=== PATIENT | female | born 1955 | race Hispanic/Latino ===

== ENCOUNTER 2018-12-26 20:37 | Emergency (ER) | payer MEDICARE, OTHER ==
[2018-12-26 20:54] VITALS: BP 119/66; PULSE 75; RESP 16; TEMP 98.4; O2SAT 95
--- NOTE | 2018-12-26 21:14 | ED PDOC ---
HPI: General Adult Time Seen by Provider: 12/26/18 20:56 Chief Complaint (Nursing): Headache Chief Complaint (Provider): fall History Per: Patient History/Exam Limitations: no limitations Onset/Duration Of Symptoms: Hrs (1) Current Symptoms Are (Timing): Better Additional Complaint(s): 63 y/o female presents for evaluation of fall prior to arrival. Patient states she tripped on a curb and fell face forward, landed on left side of face. Patient complaining of pain to side of left eye and left forehead. Denies LOC, dizziness, nausea/vomiting, vision changes, extremity numbness/weakness, neck/back pain, extremity pain. Past Medical History Reviewed: Historical Data, Nursing Documentation, Vital Signs Vital Signs: Last Vital Signs Temp 98.4 F 12/26/18 20:51 Pulse 75 12/26/18 20:51 Resp 16 12/26/18 20:51 BP 119/66 12/26/18 20:51 Pulse Ox 95 12/26/18 20:51 - Medical History PMH: Diverticulitis, HTN - Surgical History Other surgeries: mastectomy - Family History Family History: States: Unknown Family Hx - Home Medications Home Medications: Ambulatory Orders Medication Instructions Recorded Ciprofloxacin HCl [Cipro] 500 mg PO BID #20 tab 11/21/14 Metronidazole [Flagyl] 500 mg PO TID #30 tab 11/21/14 traMADol [Ultram] 50 mg PO Q6 PRN #10 tab 11/21/14 Sulfamethoxazole/Trimethopri 1 tab PO BID #14 tab 11/27/14 [Bactrim Ds 800 mg-160 mg] - Allergies Allergies/Adverse Reactions: Allergies Allergy/AdvReac Type Severity Reaction Status Date / Time Penicillins Allergy RASH Verified 12/26/18 20:50 Review of Systems ROS Statement: Except As Marked, All Systems Reviewed And Found Negative Eyes: Positive for: Pain (left periorbital) Neurological: Positive for: Headache (left frontal) Physical Exam - Reviewed Nursing Documentation Reviewed: Yes Vital Signs Reviewed: Yes - Physical Exam Appears: Positive for: Well, Non-toxic, No Acute Distress Head Exam: Positive for: ATRAUMATIC, NORMAL INSPECTION, NORMOCEPHALIC Skin: Positive for: Normal Color Eye Exam: Positive for: EOMI, PERRL, Periorbital swelling (edema, ecchymosis, tenderness superior and lateral left periorbial). Negative for: Conjunctival injection ENT: Positive for: Normal ENT Inspection Cardiovascular/Chest: Positive for: Regular Rate, Rhythm Respiratory: Positive for: Normal Breath Sounds Gastrointestinal/Abdominal: Positive for: Normal Exam Back: Positive for: Normal Inspection Extremity: Positive for: Normal ROM Neurological/Psych: Positive for: Awake, Alert, Oriented (x3) - ECG O2 Sat by Pulse Oximetry: 95 - Progress ED Course And Treament: -CT head -CT facial bones -ice application -PO tylenol EXAM: CT Maxillofacial without Intravenous Contrast. CLINICAL HISTORY: Fall, facial injury TECHNIQUE: Axial computed tomography images of the face without intravenous contrast. Sagittal and coronal reformatted images were generated. 788.29 mGy-cm CONTRAST: Without COMPARISON: None provided. FINDINGS: BONES: No acute facial fractures are identified. SOFT TISSUES: The soft tissues are unremarkable. SINUSES: There is mild mucosal thickening in both maxillary sinuses. ORBITS: The bony orbits and globes appear intact. MISCELLANEOUS: Small amount of gas is seen under the right eyelid, please correlate clinically. IMPRESSION: 1. Small amount of gas is seen under the right eyelid, please correlate clinically. 2. There is mild mucosal thickening in both maxillary sinuses. 3. No acute facial fractures are identified. 4. The bony orbits and globes appear intact EXAM: CT Head without Intravenous Contrast. CLINICAL HISTORY: Fall, head injury TECHNIQUE: Axial computed tomography images of the head/brain without intravenous contrast. 770.10 mGy-cm COMPARISON: Comparison is made to prior CT brain examination dated 04/08/2014. FINDINGS: BRAIN No acute intraparenchymal hemorrhage. No mass lesion. No CT evidence for acute territorial infarct. No midline shift or extra-axial collections. Very minimal diffuse age-appropriate cerebral/cerebellar atrophy noted. There are bilateral periventricular and subcortical white matter hyperlucency is compatible with mild chronic microvascular disease. VENTRICLES: No hydrocephalus. ORBITS: The orbits are unremarkable. SINUSES AND MASTOIDS: The paranasal sinuses and mastoid air cells are clear. BONES: No fracture. SOFT TISSUES: Unremarkable. IMPRESSION: 1. No acute intracranial abnormality. 2. Minimal age appropriate cerebral/cerebellar atrophy. 3. Mild chronic microvascular disease. 4. No significant interval change Patient denies right periorbital pain/swelling. No crepitus noted upon palpation of bilateral eyelids Patient educated on findings, discharged with instructions to follow up with PMD within 2-3 days Advised ice application. Tylenol PRN pain Return precautions given Disposition - Clinical Impression Clinical Impression: Periorbital contusion of left eye - Patient ED Disposition Is Patient to be Admitted: No Counseled Patient/Family Regarding: Studies Performed, Diagnosis, Need For Followup - Disposition Disposition: Routine/Home Disposition Time: 22:58 Condition: IMPROVED Instructions: Eye Contusion (DC) Forms: [employer]) ([place])
--- NOTE | 2018-12-27 11:23 | CT ---
Date of service: 12/26/2018 PROCEDURE: CT HEAD WITHOUT CONTRAST. HISTORY: fall, head injury COMPARISON: 04/08/2014. TECHNIQUE: Axial computed tomography images were obtained through the head/brain without intravenous contrast. Supplemental Coronal and Sagittal projections created and reviewed. Radiation dose: Total exam DLP = 770.14 mGy-cm. This CT exam was performed using one or more of the following dose reduction techniques: Automated exposure control, adjustment of the mA and/or kV according to patient size, and/or use of iterative reconstruction technique. FINDINGS: HEMORRHAGE: No intracranial hemorrhage. BRAIN: No mass effect or edema. No atrophy or chronic microvascular ischemic changes. VENTRICLES: Unremarkable. No hydrocephalus. CALVARIUM: Unremarkable. PARANASAL SINUSES: Unremarkable as visualized. No significant inflammatory changes. MASTOID AIR CELLS: Unremarkable as visualized. No inflammatory changes. OTHER FINDINGS: None. IMPRESSION: No acute intracranial abnormalities. No significant findings to account for the clinical presentation. No significant interval change compared to the prior examination(s). Concordant results (preliminary interpretation) provided by [facility]. Procedure Completed: 21:25. Preliminary Report: Interpreted and electronically signed: 22:16. Final Interpretation: 11:19. December 27, 2018.
--- NOTE | 2018-12-27 11:28 | CT ---
Date of service: 12/26/2018 PROCEDURE: CT MAXILLOFACIAL BONES WITHOUT CONTRAST HISTORY: fall, left facial injury COMPARISON: None available. TECHNIQUE: Contiguous axial CT images of the maxillofacial bones were obtained. Coronal and sagittal reformats were generated. Radiation dose: Total exam DLP = 788.29 mGy-cm. This CT exam was performed using one or more of the following dose reduction techniques: Automated exposure control, adjustment of the mA and/or kV according to patient size, and/or use of iterative reconstruction technique. FINDINGS: NASAL BONES: Unremarkable. ORBITS: Unremarkable. PARANASAL SINUSES/ MASTOIDS: Clear. MAXILLA: Unremarkable. MANDIBLE/ TEMPOROMANDIBULAR JOINTS: Unremarkable. SKULL BASE: Unremarkable. TEMPORAL BONES: Middle ears and mastoid grossly unremarkable. OTHER FINDINGS: Soft tissue swelling about the lateral aspect of the left orbit. No adjacent osseous or ocular abnormalities. IMPRESSION: No significant or acute findings to account for/ related to the clinical presentation. Additional benign and/or incidental findings described above. Concordant results (preliminary interpretation) provided by [facility]. Procedure Completed: 21:31. Preliminary Report: Interpreted and electronically signed: 22:16. Final Interpretation: 11:25. December 27, 2018.
== END 2018-12-26 23:25 | disposition home or self-care (01) ==
LOC: H.ER 20:37
DX: S00.12XA Contusion of left eyelid and periocular area, initial encounter (principal); S09.90XA Unspecified injury of head, initial encounter; W01.0XXA Fall on same level from slipping, tripping and stumbling without subsequent striking against object, initial encounter; Y92.480 Sidewalk as the place of occurrence of the external cause